=== PATIENT | female | born 1970 | race Caucasian/White ===

== ENCOUNTER → 2016-09-05 | Outpatient (CLI) | payer OTHER ==
--- NOTE | 2016-09-05 14:15 | MM ---
Reason for exam: clinical finding. Last mammogram was performed 5 years and 7 months ago. History: Family history of breast cancer in sister at age 37. Implant Removal of both breasts, November 2010. Took hormonal contraceptives for 1 year beginning at age 18. Indicated problem(s): palpable abnormality in the right breast. Physical Findings: Nurse did not find any significant physical abnormalities on exam. MG Diagnostic Mammo w CAD KULWINDER Bilateral CC and MLO view(s) were taken. Prior study comparison: February 09, 2011, CAD bilateral diagnostic mammogram. The breast tissue is heterogeneously dense. This may lower the sensitivity of mammography. There is no discrete abnormality including area of concern. No significant new findings when compared with previous films. These results were verbally communicated with the patient and result sheet given to the patient on 09/05/16. ASSESSMENT: Incomplete: need additional imaging evaluation, BI-RAD 0 RECOMMENDATION: Ultrasound of the right breast.
--- NOTE | 2016-09-05 14:16 | USB ---
Reason for exam: clinical finding. History: Family history of breast cancer in sister at age 37. Implant Removal of both breasts, November 2010. Took hormonal contraceptives for 1 year beginning at age 18. Indicated problem(s): palpable abnormality in the right breast. US Breast RT Right breast ultrasound including all four quadrants, the retroareolar region and axilla demonstrates no cystic or solid lesion seen. These results were verbally communicated with the patient and result sheet given to the patient on 09/05/16. ASSESSMENT: Negative, BI-RAD 1 RECOMMENDATION: Routine screening mammogram of both breasts in 1 year. Manage patient on a clinical basis.
== END | disposition home or self-care (01) ==
LOC: RADMAMWWP 07:18
PROVIDERS: ATTEND Family Medicine
DX: N63 Unspecified lump in breast (principal)
CPT/HCPCS: 76641; G0204

== ENCOUNTER → 2016-12-15 | Outpatient (CLI) | payer OTHER ==
--- NOTE | 2016-12-15 09:31 | CT ---
EXAMINATION TYPE: CT chest w con DATE OF EXAM: 12/15/2016 9:10 AM COMPARISON: CT chest June 22, 2010 HISTORY: Chest pain and pain in right leg, history of pulmonary embolism CT DLP: 290.3 mGycm. Automated Exposure Control for Dose Reduction was Utilized. TECHNIQUE: CT scan of the thorax is performed following with IV Contrast, patient injected with 100 mL of Omnipaque 300. FINDINGS: LUNGS: Dependent atelectasis in the right lower lobe is present. No suspicious consolidation is seen. No concerning parenchymal nodule or mass is seen. No pleural effusion or pneumothorax is identified. MEDIASTINUM: There are no greater than 1 cm hilar or mediastinal lymph nodes. No cardiomegaly or pe ricardial effusion is seen. OTHER: Cholecystectomy clips are now present. Interval removal of bilateral subpectoral breast implan ts noted. IMPRESSION: No suspicious acute cardiopulmonary process.
--- NOTE | 2016-12-15 11:43 | US ---
EXAMINATION TYPE: US venous doppler duplex LE DATE OF EXAM: 12/15/2016 9:17 AM COMPARISON: NONE CLINICAL HISTORY: M79.604 leg pain. SIDE PERFORMED: Bilateral TECHNIQUE: The lower extremity deep venous system is examined utilizing real time linear array sonog obed with graded compression, doppler sonography and color-flow sonography. VESSELS IMAGED: External Iliac Vein (EIV) Common Femoral Vein Deep Femoral Vein Greater Saphenous Vein * Femoral Vein Popliteal Vein Small Saphenous Vein * Proximal Calf Veins (* superficial vessels) Right Leg: Negative for DVT Left Leg: Negative for DVT IMPRESSION: 1.
== END | disposition home or self-care (01) ==
LOC: RADUSMAIN 08:22
PROVIDERS: ATTEND Family Medicine
DX: M79.604 Pain in right leg (principal); R07.89 Other chest pain
CPT/HCPCS: 93970; 71260; Q9967

== ENCOUNTER → 2017-02-28 | Outpatient (CLI) | payer OTHER ==
--- NOTE | 2017-02-28 14:37 | CT ---
EXAMINATION TYPE: CT abdomen pelvis w con DATE OF EXAM: 02/28/2017 HISTORY: Per pt looking for evi filter, Rt groin pain. Abdominal pain not further specified pe r order. CT DLP: 860.1mGycm Automated Exposure Control for Dose Reduction was Utilized. CONTRAST: CT scan of the abdomen and pelvis is performed with IV Contrast, patient injected with 100 mL of Omni paque 300. COMPARISON: None. FINDINGS: LUNG BASES: Dependent atelectasis in both lung bases is present.. LIVER/GB: Cholecystectomy clips are seen. PANCREAS: No significant abnormality is seen. SPLEEN: Spleen is upper limits of normal measuring 12.9 cm on long axis on axial image 23. ADRENALS: No significant abnormality is seen. KIDNEYS: There is 8mm low dense lesion anteromedially upper pole level left kidney too small to furth er characterize but most likely benign. 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 There is mild pyelocaliectasis and hydroureter of l ower pole modality without obstructing calculus clearly seen. I cannot follow mid to distal ureter to see if there is completely duplicated ureters. BOWEL: Normal-appearing appendix is seen from cecum. There is no suspicious small or large bowel dila tation. UTERUS/ADNEXA: Uterus is anteverted in shape and within normal limits in size. There is 1.1 cm round hyperdense lesion left uterine body felt to reflect intramural fibroid. Both ovaries are present and not suspiciously enlarged. Within right ovary there is 1.4 cm rim hyperdense lesion felt to reflect c orpus luteal cyst from recent ovulation. Some scattered pelvic phleboliths are seen. LYMPH NODES: No greater than 1cm abdominal or pelvic lymph nodes are appreciated. OSSEOUS STRUCTURES: No significant abnormality is seen. OTHER: Metallic filter is not present in pelvic iliac vessels, IVC, or visualized portion of right he art. Right groin region shows no suspicious mass, adenopathy, or hernia. IMPRESSION: 1. Metallic IVC filter not identified. 2. 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 Cause of this uncertain as no obvious obstructing stone is evident. 3. Probable 1.1 cm intramural uterine fibroid. Consider pelvic ultrasound correlation.
== END | disposition home or self-care (01) ==
LOC: RADCTMAIN 12:01
PROVIDERS: ATTEND Family Medicine
DX: N13.30 Unspecified hydronephrosis (principal); R10.31 Right lower quadrant pain
CPT/HCPCS: 74177; Q9967